=== PATIENT | male | born 1990 | race African-American/Black ===

== ENCOUNTER 2025-01-22 21:18 | Observation (INO) | payer OTHER ==
[2025-01-22 22:45] LABS: ABSOLUTE IMMATURE GRANULOCYTES 0.04 x10^3/uL (0.0-0.031); BASOPHILS # 0.05 x10^3/uL (0.01-0.08); EOSINOPHIL % 9.4 % (0.8-7.0); EOSINOPHILS # 0.91 x10^3/uL (0.04-0.54); MCHC 32.5 g/dl (32.3-36.5); MEAN CELL VOLUME 87.1 fl (79.0-92.2); MEAN PLT VOLUME 9.5 fl (9.4-12.4); MONOCYTE # 0.78 x10^3/uL (0.30-0.82); MONOCYTE % 8.0 % (5.3-12.2); RDW 14.5 % (12.0-15.6)
[2025-01-22] MEDS: SODIUM CHLORIDE 0.9% 500 ML INFUS.BAG IV ONE (22:53)
[2025-01-22 23:00] LABS: GLUCOSE,RANDOM 91.0 mg/dL (74-106); TOT PROT 8.0 g/dl (6.4-8.2)
[2025-01-22 23:01] LABS: CO2 29.0 mmol/L (21-32)
[2025-01-22 23:03] LABS: ALK PHOS 87.0 U/L (40-150)
[2025-01-22 23:05] LABS: CREATININE 0.99 mg/dL (0.55-1.3); SGOT/AST 29.0 U/L (5-34); SGPT/ALT 57.0 U/L (0-55)
[2025-01-22 23:27] LABS: HCV DIAGNOSTIC IN-HOUSE W/RFLX NON-REACTIVE (NONREACTIVE); HIV INTERPRETATION NEGATIVE (NEGATIVE)
[2025-01-22 23:38] LABS: ERYTHROCYTE SEDIMENTATION RATE 11 mm/hr (0-10)
[2025-01-22] MEDS ORDERED: ACETAMINOPHEN 325 MG TABLET (FP) PO PRN (23:41)
[2025-01-22] MEDS ORDERED: ONDANSETRON 4 MG/2 ML VIAL IVPUSH PRN (23:41)
[2025-01-22] MEDS ORDERED: ALBUTEROL SO4 0.083% IH SOL 2.5 MG/3 ML VIAL.NEB. NEB PRN (23:46)
[2025-01-22] MEDS: diphenhydrAMINE HCL 25 MG CAPSULE (FP) PO SCH (23:59)
[2025-01-23] MEDS ORDERED: methylPREDNISolone NA SUCC 40 MG/1 ML VIAL ONE (00:08)
[2025-01-23] MEDS: methylPREDNISolone NA SUCC 40 MG/1 ML VIAL IVPUSH SCH ×2 (00:17→21:36)
[2025-01-23] MEDS: SODIUM CHLORIDE 1,000 ML IV SCH (03:24)
[2025-01-23] MEDS: MUPIROCIN 2% TOPICAL OINTMENT 22 GM TUBE TP SCH (03:25)
[2025-01-23] MEDS: diphenhydrAMINE HCL 25 MG CAPSULE (FP) PO SCH (04:07)
[2025-01-23 04:21] VITALS: BMI 34.3
[2025-01-23 07:08] VITALS: RESP 18
[2025-01-23 09:23] LABS: ABSOLUTE IMMATURE GRANULOCYTES 0.03 x10^3/uL (0.0-0.031); BASOPHILS # 0.01 x10^3/uL (0.01-0.08); EOSINOPHIL % 0.4 % (0.8-7.0); EOSINOPHILS # 0.03 x10^3/uL (0.04-0.54); MCHC 32.3 g/dl (32.3-36.5); MEAN CELL VOLUME 86.8 fl (79.0-92.2); MEAN PLT VOLUME 9.6 fl (9.4-12.4); MONOCYTE # 0.09 x10^3/uL (0.30-0.82); MONOCYTE % 1.3 % (5.3-12.2); RDW 14.3 % (12.0-15.6)
[2025-01-23] MEDS: ENOXAPARIN NA (PORCINE) 40 MG/0.4 ML DISP.SYRIN SQ SCH (09:51)
[2025-01-23] MEDS: FAMOTIDINE 20 MG/50 ML IVPB 20 MG/50 ML MG IVPB SCH (09:51)
[2025-01-23 09:55] LABS: GLUCOSE,RANDOM 145.0 mg/dL (74-106)
[2025-01-23 09:56] LABS: TOT PROT 7.2 g/dl (6.4-8.2)
[2025-01-23 09:57] LABS: CO2 22.0 mmol/L (21-32)
[2025-01-23 09:58] LABS: ALK PHOS 78.0 U/L (40-150)
[2025-01-23 10:01] LABS: CREATININE 0.82 mg/dL (0.55-1.3); SGOT/AST 32.0 U/L (5-34); SGPT/ALT 55.0 U/L (0-55)
[2025-01-24] MEDS: MELATONIN 5 MG TABLETS PO ONE (00:11)
[2025-01-24 07:37] LABS: ABSOLUTE IMMATURE GRANULOCYTES 0.07 x10^3/uL (0.0-0.031); BASOPHILS # 0.01 x10^3/uL (0.01-0.08); EOSINOPHIL % 0.1 % (0.8-7.0); EOSINOPHILS # 0.01 x10^3/uL (0.04-0.54); MCHC 31.9 g/dl (32.3-36.5); MEAN CELL VOLUME 86.3 fl (79.0-92.2); MEAN PLT VOLUME 9.8 fl (9.4-12.4); MONOCYTE # 0.67 x10^3/uL (0.30-0.82); MONOCYTE % 4.7 % (5.3-12.2); RDW 14.8 % (12.0-15.6)
[2025-01-24 08:06] LABS: GLUCOSE,RANDOM 128.0 mg/dL (74-106)
[2025-01-24 08:08] LABS: CO2 23.0 mmol/L (21-32)
[2025-01-24 08:12] LABS: CREATININE 0.76 mg/dL (0.55-1.3)
[2025-01-24 14:28] VITALS: BP 132/71; PULSE 77; TEMP 98.1
== END 2025-01-24 16:45 | disposition home or self-care (01) ==
LOC: JER 21:18 → JERBED 21:52 → J6S 01-23 01:02
PROVIDERS: ADMIT Hospitalist; ATTEND Internal Medicine
PROC: 3E033GC Introduction of Other Therapeutic Substance into Peripheral Vein, Percutaneous Approach (ICD-10-PCS; principal; 2025-01-22)
PROC: 3E0337Z Introduction of Electrolytic and Water Balance Substance into Peripheral Vein, Percutaneous Approach (ICD-10-PCS; 2025-01-22)
DX: T78.49XA Other allergy, initial encounter (principal); T50.995A Adverse effect of other drugs, medicaments and biological substances, initial encounter; Y92.89 Other specified places as the place of occurrence of the external cause; X58.XXXA Exposure to other specified factors, initial encounter; L30.9 Dermatitis, unspecified; Z88.0 Allergy status to penicillin
CPT/HCPCS: 36415; 71046-TC-FY; 80048; 80053; 84484; 85025; 85651; 86140; 86803; 87070; 87205; 87389; 93005; 93010; 99285-25; G0378